=== PATIENT | male | born 1995 | race African-American/Black ===

== ENCOUNTER 2017-02-15 20:24 | Emergency (ER) | payer OTHER ==
[~2017-02-15] VITALS: Ht 180.3 cm; Wt 60.0 kg
[~2017-02-15 20:24] MED LIST: AUGM875T PO
[2017-02-15 20:34] VITALS: BP 120/71; PULSE 73; RESP 18; TEMP 98.5; O2SAT 98
[2017-02-15 20:39] VITALS: BP 120/71; PULSE 88; RESP 18; O2SAT 98
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
[2017-02-15 22:36] VITALS: BP 118/69; PULSE 78; RESP 20; O2SAT 98
[2017-02-15 22:55] LABS: AUTOMATED NEUTROPHIL # 5.2 TH/MM3 (1.8-7.7); BASOPHIL % 0.3 % (0.0-2.0); EOSINOPHIL # 0.1 TH/MM3 (0-0.4); EOSINOPHIL % 1.3 % (0.0-4.0); HEMO FLAGS DIFF FINAL; LYMPH % 20.4 % (9.0-44.0); LYMPHOCYTE # 1.5 TH/MM3 (1.0-4.8); MEAN CELL VOLUME 87.3 FL (80.0-100.0); MEAN CORPUSCULAR HEMOGLOBIN 30.5 PG (27.0-34.0); MONO % 7.8 % (0.0-8.0); NEUT % 70.2 % (16.0-70.0); PLATELET COUNT 242 TH/MM3 (150-450); RED BLOOD COUNT 5.04 MIL/MM3 (4.50-5.90); RED CELL DISTRIBUTION WIDTH 12.7 % (11.6-17.2); WHITE BLOOD COUNT 7.4 TH/MM3 (4.0-11.0)
[2017-02-15 23:02] LABS: BLOOD, URINE NEG (NEG); GLUCOSE,URINE NEG (NEG); KETONE, URINE TRACE mg/dL (NEG); MUCUS URINE FEW /lpf (OCC); NITRITE,URINE NEG (NEG); PH, URINE 6.5 (5.0-8.5); TRANSITIONAL EPI CELLS, URINE <1 /hpf; URINE COLOR YELLOW (YELLW/STRAW)
[2017-02-15 23:03] LABS: COMMENT (UR) CULT NOT INDICATED; CULTURE IF INDICATED CULT NOT INDICATED
[2017-02-15 23:08] LABS: BICARBONATE 29.1 MEQ/L (21.0-32.0); POTASSIUM 3.6 MEQ/L (3.5-5.1)
[2017-02-15 23:19] LABS: APTT (PATIENT) 26.7 SEC (24.3-30.1); PROTHROMBIN TIME - PATIENT 11.6 SEC (9.8-11.6)
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
[2017-02-16] MEDS ORDERED: CYCL5TAB PO (01:39)
[2017-02-16] MEDS ORDERED: HYDR-3534 PO (01:39)
== END 2017-02-16 02:08 | disposition home or self-care (01) ==
LOC: NEPE 20:24
DX: S32.028A Other fracture of second lumbar vertebra, initial encounter for closed fracture (principal); V89.2XXA Person injured in unspecified motor-vehicle accident, traffic, initial encounter
CPT/HCPCS: 70450; 71020; 72125; 72131; 73502; 74176; 80048; 81001; 85025; 85610; 85730; 99284; L0484